=== PATIENT | male | born 1980 | race Caucasian/White ===

== ENCOUNTER → 2018-09-01 | Outpatient (REF) | payer OTHER ==
[2018-09-01 22:08] LABS: CHLAMYDIA DNA AMPLIFICATION NEGATIVE (NEGATIVE); GC DNA AMPLIFICATION NEGATIVE (NEGATIVE)
== END ==
LOC: M LAB REF 19:09
PROVIDERS: ATTEND Physician Assistant
DX: N50.812 Left testicular pain (principal)

== ENCOUNTER → 2018-09-01 | Outpatient (CLI) | payer BC, OTHER ==
--- NOTE | 2018-09-01 16:34 | REP ---
Scrotal sonography: History: Left testalgia Swelling. Findings: High-resolution bilateral scrotal sonography demonstrates homogeneous testicular parenchyma bilaterally. No intratesticular mass lesion is seen. Right testis measures 5.0 x 2.3 x 3.1 cm. Left testicular dimensions are 5.1 x 2.1 x 2.6 cm. Epididymi are unremarkable. Doppler flow is normal in each testis. Resistive indices are measured at 0.61 on the right and 0.60 on the left by Doppler. There is a small left scrotal varicocele. Impression: Small varicocele left hemiscrotum. No intratesticular mass lesion seen. Normal Doppler flow to both testes. Otherwise negative. Electronically Signed by Todd Carrillo MD 09/01/2018 05:18 P
== END ==
LOC: M RAD 15:32
PROVIDERS: ATTEND Physician Assistant
DX: I86.1 Scrotal varices (principal); N50.812 Left testicular pain